=== PATIENT | male | born 1975 | race Caucasian/White ===

== ENCOUNTER 2021-01-21 17:00 | Outpatient (RCR) | payer MEDICARE, SELFPAY | END 2021-04-05 23:59 | LOC: IMMUN 17:00 | PROVIDERS: Referring Provider Family Medicine; Visit Provider Family Medicine | DX: Z23 Encounter for immunization (principal) | CPT/HCPCS: 0001A; 0002A; 91300 ==

== ENCOUNTER 2022-04-30 12:18 | Emergency (ER) | payer MEDICAID, SELFPAY ==
[2022-04-30 12:19] VITALS: BP 139/86; PULSE 72; RESP 15; TEMP 35.8; O2SAT 96; BMI 26.6
--- NOTE | 2022-04-30 12:28 | EDS_ITS ---
HPI History of Present Illness Chief Complaint: Lower Extremity Injury Detail of Chief Complaint: Left foot injury Informant: patient Narrative Narrative: Patient presents the emergency department complaint of injury to his left foot, initially occurred a week ago when his large 100 pound dog ran into his foot and stubbed it. He initially did not think much of it but then he reinjured it last night. Patient having a hard time bearing weight. Patient seen at urgent care and referred to the ER as they do not have x-ray on Sunday. PFSH PFSH Medical History no medical history Home Medications Prilosec OTC 04/30/22 [History Last Taken Unknown] hydrocodone-acetaminophen 5-325mg 5mg-325mg 1 tab PO Q4H PRN PRN Pain 2 days #10 TABLETS 04/30/22 [Rx Last Taken Unknown] multivitamin 04/30/22 [History Last Taken Unknown] Allergy/AdvReac Type Severity Reaction Status Date / Time No Known Allergies Allergy Verified 04/30/22 12:19 Surgical History no surgical history Social History Smoking Status: Never smoker ROS ROS ED Review of Systems ROS Unobtainable: other Constitutional Constitutional ED: Reports lethargy; Denies chills, fever(s), sweats or weight loss Eyes Eyes: Denies blurry vision, change in vision or diplopia ENT ENT ED: Denies rhinorrhea or sore throat Cardiovascular Cardiovascular: Reports chest pain and racing heartbeat; Denies orthopnea Respiratory/Chest Respiratory/Chest: Reports dyspnea and dyspnea on exertion; Denies cough, orthopnea or sputum Gastrointestinal Gastrointestinal: Denies abdominal pain, diarrhea, nausea or vomiting Genitourinary Genitourinary ED: Denies dysuria, hematuria or urinary frequency Musculoskeletal Musculoskeletal: Reports other Details: Left foot injury/pain ; Denies arthralgias, back pain, myalgias or neck pain Integumentary Denies abscess, Abrasions or rash Neurologic Neurologic: Denies headache(s) or weakness Psychiatric Psychiatric: Denies anxiety, depression or suicidal thoughts Endocrine Endocrinology: Denies polydipsia, polyphagia or polyuria Hematologic/Lymphatic Hematologic/Lymphatic: Denies easy bleeding, easy bruising or lymphadenopathy Allergic/Immunologic Allergic/Immunologic ED: Denies mouth swelling, tongue swelling or urticaria EXAM Physical Exam Const Vital Signs: 04/30/22 12:19 Temperature 96.4 F L Temperature Source Temporal Pulse Rate 72 Respiratory Rate 15 Blood Pressure 139/86 H Blood Pressure Mean 103 Pulse Ox 96 Oxygen Delivery Method Room Air Positive well nourished and well developed General Appearance ED: well developed and NAD HEENT Reports TM's clear and moist mucous membranes normocephalic and atraumatic; Negative for trauma or tenderness Tympanic Membrane ED: Yes TM's clear Eyes PERRL and EOMs intact bilaterally General Eye ED: Negative for pale conjunctiva or scleral icterus Neck no lymphadenopathy, supple and no JVD General: Negative for tenderness Chest Wall inspection of chest normal and palpation of chest normal Chest: Negative for tenderness Resp normal respiratory effort and clear to auscultation bilaterally Effort and Inspection: Negative for respiratory distress or pain with movement Auscultation: Negative for rhonchi, wheezes or diminished lung sounds Cardio regular rate, regular rhythm, S1 normal heart sound, S2 normal heart sound and no murmurs Peripheral Pulses: pulses 2+ throughout GI normal to inspection, nondistended, normoactive bowel sounds, soft to palpation, non-tender, non-distended and no masses Back/Spine no CVA tenderness and no thoracic nor lumbar tenderness Extremity Extremity Narrative: Left foot-patient has ecchymosis and bruising to the dorsal aspect of the distal foot adjacent to the second and third toes. Second and third toes have some ecchymosis and bruising over the proximal phalanx. No obvious deformity. Neurovascular intact distally. General Extremety ED: Negative for edema General Extremity: Negative for edema Neuro oriented x3, CN's II-XII intact bilaterally, no sensory deficits noted and gait normal Sensorium / Orientation: awake, alert, oriented to person, oriented to place and oriented to time Motor Exam: strength 5/5 throughout and strength abnormal Psych mental status grossly normal Skin no rashes or lesions noted and no wounds MDM MDM MDM Narrative Medical decision making narrative: Three-view x-rays of the left foot obtained interpreted by myself as fracture at the base of the proximal phalanx of the second toe. Official report from radiology pending. Patient does not want a postop shoe or David wrap. He does not want to have a toes gracy taped. Patient did not want crutches. Patient will be given a prescription for few [place] for pain. He is given referral to podiatry for follow-up. He is to ice and elevate the extremity. Discharge Plan Triage Chief Complaint: Lower Extremity Injury ED Provider: Andrey Her Dx/Rx/DC Orders Clinical Impression: Closed fracture of toe Instructions: ED Fracture, Toe, Closed Prescriptions: New hydrocodone-acetaminophen [hydrocodone-acetaminophen] 5-325 mg tablet 1 tab PO Q4H PRN PRN (Reason: Pain) 2 Days Qty: 10 0RF No Action Prilosec OTC multivitamin Primary Care Provider: Care Physician,No Primary Referrals: Jeremías Beard DPM [STAFF PHYSICIAN] - 3-5 Days Care Physician,No Primary [Primary Care Provider] - Disposition Disposition: Home, Self Care
--- NOTE | 2022-04-30 12:28 | RAD_ITS ---
EXAM: XR LEFT FOOT COMPLETE, 3 OR MORE VIEWS CLINICAL INDICATION: injruy TECHNIQUE: Frontal, lateral and oblique views of the left foot. This report was created using [employer] report generation technology. COMPARISON: None. FINDINGS: BONES/JOINTS: Fracture deformity of the proximal portion of the second proximal phalanx. Preservation of the joint space. No sclerotic or destructive changes observed. SOFT TISSUES: Mild soft tissue swelling of the dorsum of the foot. No radiopaque foreign body. RAD/Foot min 3 Views IMPRESSION: Nondisplaced fracture deformity of the second proximal phalanx Electronically Signed: Ra Holland MD at 12:53 EDT ,
== END 2022-04-30 12:52 | disposition home or self-care (01) ==
PROVIDERS: Emergency Provider Emergency Medicine; Visit Provider Emergency Medicine
DX: S92.502A Displaced unspecified fracture of left lesser toe(s), initial encounter for closed fracture (principal); X58.XXXA Exposure to other specified factors, initial encounter
CPT/HCPCS: 73630; 99282

== ENCOUNTER 2025-02-27 10:45 | Emergency (ER) | payer MEDICAID, SELFPAY ==
[2025-02-27 10:46] VITALS: BP 160/87; PULSE 74; RESP 16; TEMP 36.8; O2SAT 95; BMI 28.1
--- NOTE | 2025-02-27 11:08 | EX.ED.UPPERE ---
HPI <CHRIS Montemayor - Last Filed: 02/27/25 11:09> History of Present Illness Chief Complaint: Upper Extremity Injury Narrative Narrative: 49-year-old male cut his right hand over the thenar eminence 1 week ago on a piece of wood. He cleansed the wound and states it became slightly swollen so he took an old Z-Sina that he had on hand. The wound has closed and does not look worse but he still having pain in the area. He has chronic pain in his right shoulder and that seemed worse as well and he was concerned that maybe there is a wound infection. He has no fever or chills. He has no known medical problems. PFSH <CHRIS Montemayor Last Filed: 02/27/25 11:09> [facility] Home Medications ?Medication ?Instructions ?Recorded ?Last Taken ?Type Prilosec OTC 04/30/22 Unknown History hydrocodone-acetaminophen 5-325mg 1 tab PO Q4H PRN PRN Pain 2 days 04/30/22 Unknown Rx 5mg-325mg #10 TABLETS multivitamin 04/30/22 Unknown History Allergy/AdvReac Type Severity Reaction Status Date / Time No Known Allergies Allergy Verified 02/27/25 10:48 Social History Smoking Status: Never smoker ROS <CHRIS Montemayor Last Filed: 02/27/25 11:09> ROS ED ROS Narrative Constitutional: Negative for fever, chills, malaise. Neuro: Negative for motor/sensory dysfunction. Skin: Negative for rash, abscess. EXAM <CHRIS Montemayor Last Filed: 02/27/25 11:09> Physical Exam Narrative Exam Narrative: CONST: Patient sitting in no acute distress. EYES: Normal inspection. NECK: Normal inspection. RESP: No respiratory distress, CTAB. CVS: Regular rate and rhythm, no murmur, no gallop. SKIN: Color normal, no rash, warm, dry, intact. EXTREMITIES: Healed 1 cm scab right thenar eminence. No surrounding redness or swelling. No tenderness, fluctuance or crepitus. Upper extremities both appear normal with full range of motion and normal motor and sensory function in median radial and ulnar distributions. 2+ radial pulses. Brisk cap refill. NEURO: Alert and answering questions appropriately. PSYCH: Normal affect. Const Vital Signs: 02/27/25 10:46 Temperature 98.3 F Temperature Source Oral Pulse Rate 74 Respiratory Rate 16 Blood Pressure 160/87 H Blood Pressure Mean 111 Pulse Ox 95 Oxygen Delivery Method Room Air MDM <Dr. Pepe Harvey MD - Last Filed: 02/27/25 11:16> [facility] Narrative Medical decision making narrative: I have personally performed a face to face assessment of the patient and have reviewed the RADHA Note. I performed a substantive portion of the visit including all aspects of the following. My [place] findings include: History is [healthy 49-year-old male [id number] laceration on his right thumb thenar eminence about a week ago. He is just complaining some mild discomfort. Does not think there was a foreign body. No redness or fever. No prior surgery. He has chronic right shoulder pain. He said that some volume little bit lately. But he has normal range of motion.] Exam is [well-appearing 49-year-old male. Vital signs stable afebrile. Significant other sitting in a chair beside him. HEENT exam normal. Lungs clear to auscultation bilaterally. Heart regular rhythm. Abdomen soft. Right hand healing minor laceration thenar eminence. No obvious foreign body. No swelling. No redness. No pus no streaks. Strong radial pulse. Full flexion extension of his wrist full flexion extension all digits of his hand. Normal strength. Normal sensation. No axillary lymphadenopathy. Normal range of motion of his right shoulder. Ligaments intact in the thumb.] Medical Decison Making [clinically the thumb looks good it does not look infected. We discussed possible foreign body. I explained to him that small piece of wood probably would not show up. But I did offer an x-ray he deferred. Outpatient follow-up for his shoulder. He knows to return if his right hand starts looking infected with redness or swelling, etc.] Other additions or changes: [None] History & Record Review Discussion w/independent historian: Patient Discharge Plan Triage Chief Complaint: Upper Extremity Injury ED Midlevel Provider: Lula Patterson ED Provider: Pepe Harvey Dx/Rx/DC Orders Clinical Impression: Encounter for post-traumatic wound check Instructions: ED Wound Check (No Infection) Prescriptions: No Action Prilosec OTC multivitamin hydrocodone-acetaminophen [hydrocodone-acetaminophen] 5-325 mg tablet 1 tab PO Q4H PRN PRN (Reason: Pain) 2 Days Qty: 10 0RF Primary Care Provider: Care Physician,No Primary Referrals: Omkar Martinez DO [Med Staff - Active Staff] - Care Physician,No Primary [Primary Care Provider] - Activity Restrictions/Additional Instructions: There are no signs of wound infection now. Monitor and if you develop redness, swelling, drainage of pus, or fever please be reevaluated. For chronic right shoulder pain I recommend you follow-up with a primary care doctor or orthopedics. Print Language: Belgian Disposition Disposition: Home, Self Care
== END 2025-02-27 12:46 | disposition home or self-care (01) ==
LOC: ED 11:19
PROVIDERS: Emergency Provider Emergency Medicine; Visit Provider Emergency Medicine
DX: Z51.89 Encounter for other specified aftercare (principal); S66.921A Laceration of unspecified muscle, fascia and tendon at wrist and hand level, right hand, initial encounter; X58.XXXA Exposure to other specified factors, initial encounter
CPT/HCPCS: 99282

== ENCOUNTER 2025-07-20 10:16 | Day surgery (SDC) | payer MEDICAID, SELFPAY ==
--- NOTE | 2025-06-30 09:04 | EKG12_ITS ---
Test Reason : PREOP
[2025-06-30 10:06] LABS: Hematocrit 43.1 % (40-54); Hemoglobin 14.9 g/dL (13.0-16.5); Immature Granulocytes Count 0.010 X10^3/uL (0.0-0.0); Mean Corp Hgb Conc 34.6 g/dL (32-36); Mean Corpuscular Volume 94.9 fL (80-94); Mean Platelet Vol. 9.1 fl (6.2-12.0); NRBC Flagged by Analyzer 0 % (0-5); Platelet Count 324 K/mm3 (150-450); RBC Distribution Width CV 12.7 % (11.6-14.6); RBC Distribution Width SD 44.4 fl (35.1-43.9); Red Blood Count 4.54 M/mm3 (4.6-6.2); White Blood Count 4.9 K/mm3 (4.4-11.0)
[2025-06-30 11:27] LABS: Anion Gap 11 (5-15); BUN 16 mg/dL (4-19); BUN/Creat Ratio 17.8 RATIO (10-20); Calcium,Total 9.4 mg/dL (7.6-11.0); Carbon Dioxide 24.5 mmol/L (21.0-32.0); Chloride 103 mmol/L (98-108); Glucose 98 mg/dL (70-99); Potassium 4.8 mmol/L (3.3-5.1)
--- NOTE | 2025-06-30 13:17 | PAT.ANESEVAL ---
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 When Was Last Pacemaker Check QUESTION #4 FULL TEXT: You/Your Family Experience fever (hyperthermia) with Anesthesia Last Oral Intake Last Oral intake: Last Oral Intake NPO since Meds taken in AM with sips of water? Meds patient instructed to take am of surgery PONV PONV - medical billing manager: PONV - medical billing manager Female No 06/23/25 10:33 HX of Motion Sickness No 06/23/25 10:33 HX of N/V After Surgery No 06/23/25 10:33 Non-Smoker Yes 06/23/25 10:33 Duration of Surgery greater Yes 06/23/25 10:33 than 60 minutes Number of Risk Factors 2 06/23/25 10:33 PONV Score Moderate Risk 06/23/25 10:33 Height & Weight Height & Weight: Anesthesia: Height & Weight Height 5 ft 9 in 02/27/25 10:46 Respiratory Assessment Respiratory Assessment - medical billing manager: Respiratory Tract Infection Hx - medical billing manager Hx Respiratory Tract Infection No 06/23/25 10:33 STOP Sleep Apnea STOP Sleep Apnea - medical billing manager: STOP Sleep Apnea - medical billing manager Hx Hypertension No 06/23/25 10:33 Hx Sleep Apnea No 06/23/25 10:33 CPAP BIPAP Do you snore loudly (louder No 06/23/25 10:33 than talking or can be heard Do you often feel tired/ No 06/23/25 10:33 fatigued/ sleepy during daytime? Has anyone observed you stop No 06/23/25 10:33 breathing during sleep? STOP Results Negative 06/23/25 10:33 QUESTION #5 FULL TEXT : Do you snore loudly (louder than talking or can be heard through closed doors)? 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 Specify any problems Hx of Preganancy in last 3 N/A 06/23/25 10:33 Months Nurse Filling Out Transfusion VCHRISTIN 06/23/25 10:33 & Questions: Date: 06/23/25 06/23/25 10:33 Time: 10:34 06/23/25 10:33 Patient unable to answer at this time (ie. confused, unrespo /Reproduction History /Reproductive History - medical billing manager: /Reproductive Hx- medical billing manager Hx Now Gestational Age (in weeks): EDC: Hx Hx Para Hx [facility] Medical History (Updated 06/23/25 @ 10:33 by Sigrid Stoddard) Injury of head and neck Gastric reflux Non-smoker History of irregular heartbeat History of torsion of testis Home Medications ?Medication ?Instructions ?Recorded ?Last Taken ?Type acetaminophen 325 mg tablet (Pain 650 mg PO Q6H 06/23/25 Unknown History Relief (acetaminophen)) multivitamin (Daily Multi-Vitamin 1 tab PO DAILY 06/23/25 Unknown History tablet) omeprazole 20 mg tablet,delayed 20 mg PO DAILY 06/23/25 Unknown History release Allergy/AdvReac Type Severity Reaction Status Date / Time No Known Allergies Allergy Verified 06/23/25 10:25 Social History Smoking Status: Never smoker Audit: Pertinent Findings Pertinent Findings EKG Perinent findings: June 30, 2025.. Sinus rhythm with marked sinus arrhythmia. ST elevation consider early repolarization. Recommendation Anesthesia Recommendation Anesthesia recommendation: OPTIMIZED for anesthesia
[2025-07-20] VITALS (9 sets, daily range): BP systolic 111–128; BP diastolic 78–89; PULSE 66–83; RESP 16–66; TEMP 36.1–36.6; O2SAT 95–100
--- NOTE | 2025-07-20 10:29 | PCM.PRE.AN2 ---
ASA Classification* ASA Classification ASA Classification: 2 Assessment & Plan Anesthesia* Anesthesia Assessment Anesthesia Assessment: Discussed sedation and/or anesthesia options, risks, benefits, and alternatives with patient/parents/legal guardian/POA. Questions invited. The patient/parents/legal guardian/POA seems to understand and agrees to proceed with anesthesia plan. Reviewed the physical assessment, medical history, allergy history and patient home medications list prior to surgery/procedure/anesthetic and documented any changes. Performed airway and anesthesia risk assessments. Anesthesia Type Anesthesia Type: General and Block Anesthesia Focused Assessment* Airway Assessment Mouth opens: >3 cm Mallampati Score: II Labs Anesthesia Preop lab: CBC WBC, (4.4-11.0) 4.9 K/mm3 06/30/25, : RBC, (4.6-6.2) 4.54 M/mm3 L 06/30/25, : Hgb, (13.0-16.5) 14.9 g/dL 06/30/25, : Hct, (40-54) 43.1 % 06/30/25, : Plt Count, (150-450) 324 K/mm3 06/30/25, 09:24 CHEMISTRY Potassium, (3.3-5.1) 4.8 mmol/L 06/30/25, :24 Sodium, (133-145) 139 mmol/L 06/30/25, 09:24 BUN, (4-19) 16 mg/dL 06/30/25, : Creatinine, (0.70-1.20) 0.90 mg/dL 06/30/25, : Glucose, (70-99) 98 mg/dL 06/30/25, 09:24 COAG Pre-Assessment Diagnosis/Proposed Procedure Planned Operative Procedure(s): (R) RIGHT SHOULDER ARTHROSCOPIC ROTATOR CUFF REPAIR AND MINI OPEN BICEPS TENODESIS Anesthesia History 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 When Was Last Pacemaker Check QUESTION #4 FULL TEXT: You/Your Family Experience fever (hyperthermia) with Anesthesia Last Oral Intake Last Oral intake: Last Oral Intake NPO since Meds taken in AM with sips of water? Meds patient instructed to take am of surgery PONV PONV - carding supervisor: PONV - carding supervisor Female No 06/23/25 10:33 HX of Motion Sickness No 06/23/25 10:33 HX of N/V After Surgery No 06/23/25 10:33 Non-Smoker Yes 06/23/25 10:33 Duration of Surgery greater Yes 06/23/25 10:33 than 60 minutes Number of Risk Factors 2 06/23/25 10:33 PONV Score Moderate Risk 06/23/25 10:33 Height & Weight Height & Weight: Anesthesia: Height & Weight Height 5 ft 9 in 02/27/25 10:46 Respiratory Assessment Respiratory Assessment - carding supervisor: Respiratory Tract Infection Hx - carding supervisor Hx Respiratory Tract Infection No 06/23/25 10:33 STOP Sleep Apnea STOP Sleep Apnea - carding supervisor: STOP Sleep Apnea - carding supervisor Hx Hypertension No 06/23/25 10:33 Hx Sleep Apnea No 06/23/25 10:33 CPAP BIPAP Do you snore loudly (louder No 06/23/25 10:33 than talking or can be heard Do you often feel tired/ No 06/23/25 10:33 fatigued/ sleepy during daytime? Has anyone observed you stop No 06/23/25 10:33 breathing during sleep? STOP Results Negative 06/23/25 10:33 QUESTION #5 FULL TEXT : Do you snore loudly (louder than talking or can be heard through closed doors)? 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 Specify any problems Hx of Preganancy in last 3 N/A 06/23/25 10:33 Months Nurse Filling Out Transfusion VCHRISTIN 06/23/25 10:33 & Questions: Date: 06/23/25 06/23/25 10:33 Time: 10:34 06/23/25 10:33 Patient unable to answer at this time (ie. confused, unrespo /Reproduction History /Reproductive History - carding supervisor: /Reproductive Hx- carding supervisor Hx Now Gestational Age (in weeks): EDC: Hx Hx Para Hx Section SAB Active Medications Active Medications: Current Medications Generic Name Dose Route Start Last Admin Trade Name Freq PRN Reason Stop Dose Admin Cefazolin Sodium 2 gm/ Sodium 110 mls @ 200 mls/hr 07/20/25 12:30 Chloride IV 07/20/25 13:02 INTRAOP ONE Lactated Ringer's 1,000 mls @ 15 mls/hr 07/20/25 10:30 IV .Q48H [facility] PFSH Medical History Injury of head and neck Gastric reflux Non-smoker History of irregular heartbeat History of torsion of testis Home Medications ?Medication ?Instructions ?Recorded ?Last Taken ?Type acetaminophen 325 mg tablet (Pain 650 mg PO Q6H 06/23/25 Unknown History Relief (acetaminophen)) multivitamin (Daily Multi-Vitamin 1 tab PO DAILY 06/23/25 Unknown History tablet) omeprazole 20 mg tablet,delayed 20 mg PO DAILY 06/23/25 Unknown History release Allergy/AdvReac Type Severity Reaction Status Date / Time No Known Allergies Allergy Verified 06/23/25 10:25 Social History Smoking Status: Never smoker Review of Systems (Anesthesia) ROS Narrative System reviewed and no additional complaints, except as documented.
[2025-07-20] MEDS: Bupiv/Epi 0.25% 30 ML Vial (10:37)
[2025-07-20] MEDS: Lactated Ringers 1,000 ML 15 ML IV (10:46)
[2025-07-20] MEDS: Midazolam 2 MG/2 ML Syringe IV (10:54)
[2025-07-20] MEDS: fentaNYL 100 MCG/2 ML Ampul IV (11:15)
[2025-07-20] MEDS: Lidocaine 1% (5 ml sdv) 5 ML Vial 10 ML IV (11:15)
[2025-07-20] MEDS: Cefazolin 1 GM/5 ML Vial 2 GM IV (11:15)
[2025-07-20] MEDS: Epinephrine (1 mg/ml) 1 MG/ML VIAL (12:09)
--- NOTE | 2025-07-20 13:25 | OP.PCM_ITS ---
Operative Report (Standard)
--- NOTE | 2025-07-20 13:25 | PCM.OPRPT ---
Operative Report (Standard) Operative Information Date of Procedure: 07/20/25 Pre-Operative Diagnosis: 1. Right shoulder rotator cuff tear 2. Right shoulder long head biceps tendon tendinopathy and partial tearing Post-Operative Diagnosis: 1. Right shoulder rotator cuff tear 2. Right shoulder long head biceps tendon tendinopathy and partial tearing Surgery/Procedure Performed: 1. Right shoulder arthroscopic rotator cuff repair 2. Right shoulder mini open subpectoral biceps tenodesis flight engineer performance qualified: Yes Toddler Lead Teacher: Latonya Troy Tasks completed by insurance sales assistant: Opening & closing, Implanting device, Hemostasis: Electrocautery and Retracting Type of Anesthesia: General/Regional RN Documented Start/Stop Times: Operation Date: 07/20/25 12:30 Case Time Into Pre-Op 07/20/25 10:20 Anesthesia Start 07/20/25 11:12 Into Room 07/20/25 11:12 Out of Pre-Op 07/20/25 11:12 Procedure Start 07/20/25 11:36 Procedure Start Time: 11:36 Procedure Stop Time: 13:21 Select all DRAINS/GRAFTS/IMPLANTS that apply: Implanted device Implanted device details: Arthrex triple loaded fiber tack anchor x 2, bio composite self punching swivel lock anchor x 1, metallic biceps button Estimated Blood Loss: 10 cc Specimen collected: No Description of surgery: Patient was identified in preoperative holding area by name, medical record number, and date of . The operative extremity was marked. All questions were answered to the patient's satisfaction. An interscalene block was administered by anesthesia prior to the procedure. Patient was then brought to the operative suite at time of his procedure. He was positioned supine a sterile operating table. General anesthesia was induced and LMA was placed. Patient was then placed in lateral decubitus position with the right side up. A beanbag was used to hold the patient in the lateral decubitus position. An axillary roll was placed. Pillows were placed beneath and between his legs to for any bony prominences. We prepped and draped the right upper extremity in normal, sterile orthopedic fashion. The operative extremity was placed in traction utilizing arthroscopic bedroom with 15 pounds of tension applied to the operative extremity throughout the arthroscopic portion of the case. We performed a timeout with all parties in attendance in agreement with the side, site, and operation be performed. No concerns were voiced and we elected to proceed with surgery. 2 g Ancef was administered IV prior to incision by anesthesia staff. I first established a standard posterior portal 2 fingerbreadths inferior medial to the posterior lateral border of the scapular spine. Blunt tipped trocar and arthroscopic cannula was introduced into the glenohumeral joint. Joint was inflated with normal saline with epinephrine. Arthroscope was then introduced. Diagnostic arthroscopy was commenced. Partial tearing along the biceps tendon was noted in the intra-articular portion. Sublabral foramen was noted. Biceps tenotomy was then performed with arthroscopic cautery after establishment of standard anterior interval portal. Full-thickness tearing of the subscapularis was noted. Significant adhesions were noted and a 3 sided release was performed with combination of elevators and cautery. Tendon was mobilized well. Anterior superior lateral portal was established. Double row fixation was then utilized. Footprint was lightly decorticated with a rasp. Triple loaded fiber tack anchor was then placed along the chondral margin of the lesser tuberosity. A traction suture was placed along the central portion of the subscapularis. Sutures were passed sequentially through the subscapularis tissue with 2 of the 3 suture pairs utilized, the third was discarded. Sutures were passed sequentially with a scorpion suture passer. Corresponding sutures were then tensioned and tied. The traction suture and the 4 suture limbs were then passed through the eyelet of a swivel lock anchor which was placed along the lateral margin of the lesser tuberosity to better reduce the tear margin. There is excellent reapproximation of [place] subscapularis anatomy and footprint compression. Sutures were cut. No dogears identified. The articular side of the supraspinatus appeared pristine. Glenohumeral cartilage was pristine. I withdrew the arthroscope and reentered the shoulder in the subacromial space. Extensive bursitis was noted. No significant subacromial impingement was apparent. The bursal side of the rotator cuff also appeared pristine. I used a spinal needle to inject the area of concern for delaminated tear. A 1 x 1 cm area demonstrated a positive bubble test. I then proceeded with debridement of the tear by first performing a longitudinal tenotomy in line with the fibers in the central portion of the tear of the supraspinatus. Tear was then entered and debrided with a shaver. A triple loaded fiber tack anchor was placed at the footprint. 2 of the 3 suture pairs was utilized and the third was discarded. 2 [id number]-lv-[id number] sutures were then passed through the superior margin of the tear to reduce the interstitial tear and also repair my longitudinal tenotomy. Suture was tensioned and tied and then cut. Anatomic reduction was achieved. The subacromial space was then thoroughly lavaged. Arthroscopic instruments were removed. Arm was taken out of traction. 2 cm oblique incision was made along the inferior border the pectoralis major for tenodesis. Blunt dissection was carried down to level of fascia. Fascia was opened inferior to the pectoralis major. The pectoralis major was retracted laterally and the short of the biceps medially to identify and retrieved along the biceps tendon. Partial tearing and extensive tenosynovitis was noted in the long head of biceps tendon. Whipstitch was performed with a fiber loop suture at the musculotendinous junction. The intercalary segment of the biceps tendon was excised. Sutures were then passed alternatingly through a biceps button. I drilled across 1 cortex in the subpectoral region of the humerus for an onlay tenodesis. Button was placed and flipped in the intramedullary canal. Sutures were tensioned and tied. Scorpion suture passer was used to pass a suture limb back through the tendon and retied for additional fixation. There is excellent compression of the tendon to its tenodesis site. Wound was irrigated with saline solution. Dermis was reapproximated buried 3-0 Vicryl suture. Skin finally approximated with subcuticular 4-0 Monocryl and Dermabond. Field block was administered with 10 cc quarter percent bupivacaine with epinephrine. Portal sites were closed in standard fashion with a [id number] 3-0 nylon suture. Bulky sterile compression dressing was applied. Patient was placed in UltraSling. He tolerated the procedure well without apparent complication. He was safely awoken the operative suite and extubated. He was transferred to his gurney and subsequently to PACU in stable condition. Need for skilled assistant cross country coach: Latonay Troy PA-C was critical to the outcome of the case. During the course of the procedure the physician assistant cross country coach played a vital role. Her intimate knowledge of my steps in the procedure aided in safe and expedient completion of the procedure. The PA played a vital role in positioning particularly in obtaining the appropriate positioning. The PA was also vital in the retraction of soft tissues during the exposure and protecting vital structures. The PA was also vital and obtaining tendon reduction and assisting with hardware placement. She also played a vital role in closure and sling application with my direct supervision. Post Operative Plan: Weightbearing: Nonweightbearing right upper extremity, okay for pendulums. Range of motion of wrist elbow and hand as tolerated. Antibiotics: 2 g Ancef IV prior to incision DVT Prophylaxis: Aspirin enteric-coated 81 mg twice daily starting tomorrow Snow: None Dressing: Maintain dressing x 2 days then ok to shower X-Rays: 2 weeks postop in the office Pain Medication: Oxycodone Rx upon discharge Follow-up: 2 weeks post-operatively with me in the office Surgical Findings: Complete tear of the upper third to two thirds subscapularis with excellent reduction. Interstitial delamination tear of the supraspinatus 1 x 1 cm. Complications Complications: No Admit VTE Documentation VTE Present on Admission: No VTE Mechan Device Prophylaxis: SCD's VTE Pharm Prophylaxis ordered?: No Reason prophylaxis not ordered: Treatment Not Indicated
--- NOTE | 2025-07-20 13:38 | POSTOP.ANE_ITS ---
Anesthesia: Postop Eval I
--- NOTE | 2025-07-20 13:38 | PCM.POST.ANE ---
Anesthesia: Postop Eval I Current Vital Signs Temperature: 97 F Pulse Rate: 77 Blood Pressure: 118/79 Respiratory Rate: 16 Pulse Ox: 95 Assessment Airway patent: Yes Spontaneous unlabored respirations: Yes nausea: No Vomiting: No Anesthesia Complication: No Fluid Hydration Crystalloid volume administer (ml): 1,400 Total IV fluid infused: 1,400 Progress Note Anesthesia document: Postop Eval 1 completed: Yes
--- NOTE | 2025-07-20 14:22 | POSTOPAN2_ITS ---
Anesthesia Postop Eval I Sum
--- NOTE | 2025-07-20 14:22 | PCM.POSTANE2 ---
Anesthesia Postop Eval I Sum Postop Eval Completion status Anesthesia document: Postop Eval 1 completed: Yes Anesthesia Postop Eval I Summary Anesthesia Postop Eval I Summary: Anesthesia Postop Eval I: Assessment Summary Airway patent Yes 07/20/25 13:38 [email or web address] Spontaneous unlabored Yes 07/20/25 13:38 [email or web address] respirations Mental status nausea No 07/20/25 13:38 [email or web address] Vomiting No 07/20/25 13:38 [email or web address] Anesthesia Postop Eval I: Fluid Summary Crystalloid volume administer 1,400 07/20/25 13:38 [email or web address] (ml) Colloids volume administered ( ml) Blood Product volume administered (ml) Total IV fluid infused 1,400 07/20/25 13:38 [email or web address] Anesthesia Postop Eval I: Summary Notes Anesthesia Complication No 07/20/25 13:38 [email or web address] Anesthesia Complication Comment: Post-operative progress note Anesthesia: Postop Eval II Evaluation Mental status: Awake and Calm Pain Level: 1 nausea: No Vomiting: No
--- NOTE | 2025-08-31 07:18 | PCM.HP.STD ---
HPI - General General Date of Admission: 07/20/25 Date of Service: 07/20/25 Chief Complaint: Right shoulder pain HPI Narrative This is a late entry note. Apparently prior dictated H&P faxed from my office was not scanned into the electronic medical record. H&P was updated the day of surgery but was apparently lost. Below will serve as the preoperative H&P. This is a 50-year-old male who had presented to my office earlier this year with longstanding chronic right shoulder pain. He reports pain with activity especially weight lifting. Reports mechanical symptoms in his right shoulder. An MRI confirmed a rotator cuff tear of the subscapularis as well as interstitial delamination tear of the supraspinatus. Biceps instability, tendinopathy and partial tearing was also noted. Surgical intervention in the form of a right shoulder arthroscopic rotator cuff repair and biceps tenodesis was offered. He reports continued pain. No changes to his medical history reported. [facility] Medical History (Updated 08/31/25 @ 07:[address] Omkar Martinez DO) Tendinopathy of right biceps tendon Rotator cuff tear, right Injury of head and neck Gastric reflux Non-smoker History of irregular heartbeat History of torsion of testis Home Medications ?Medication ?Instructions ?Recorded ?Last Taken ?Type acetaminophen 325 mg tablet (Pain 650 mg PO Q6H 06/23/25 Unknown History Relief (acetaminophen)) multivitamin (Daily Multi-Vitamin 1 tab PO DAILY 06/23/25 Unknown History tablet) omeprazole 20 mg tablet,delayed 20 mg PO DAILY 06/23/25 07/20/25 History release Allergy/AdvReac Type Severity Reaction Status Date / Time No Known Allergies Allergy Verified 07/20/25 10:36 Social History Smoking Status: Never smoker ROS ROS Narrative 12 point review of systems obtained, negative unless otherwise noted in HPI. Physical Exam Narrative General -A&Ox3, NAD, appears stated age. Vital signs stable, afebrile. Respiratory -normal work of breathing, no intercostal retractions. CV -pulses regular, brisk capillary refill ?4 limbs. Abdomen-soft, nontender, nondistended. No guarding, rigidity, rebound tenderness. Right upper extremity: Bicipital groove tenderness right. No rashes or lesions. Positive belly press, bearhug and empty can as well as speeds test. Active forward flexion 150 degrees, external rotation 20 degrees. 5/5 strength with shoulder internal and external rotation, shoulder abduction. Sensation intact throughout. Radial pulse 2+ brisk capillary fill in the fingertips. Results Lab / Micro Data 06/30/25 09:24 06/30/25 09:24 Assessment & Plan Assessment/Plan (1) Rotator cuff tear, right: PLAN: Patient seen and examined. No change to each history and physical. As stated above, late entry note due to loss fax H&P that was updated prior on the day of surgery. Plan to proceed with surgical intervention. Informed consent was confirmed with the patient. Plan for right shoulder arthroscopic rotator cuff repair and biceps tenodesis. (2) Tendinopathy of right biceps tendon:
== END 2025-07-20 15:23 | disposition home or self-care (01) ==
LOC: SDC 10:17 → AC 10:19
PROVIDERS: Referring Provider Student in an Organized Health Care Education/Training Program; Visit Provider Student in an Organized Health Care Education/Training Program
PROC: (CPT 29827; principal; 2025-07-20 12:10)
DX: M75.101 Unspecified rotator cuff tear or rupture of right shoulder, not specified as traumatic (principal); S46.111A Strain of muscle, fascia and tendon of long head of biceps, right arm, initial encounter; G89.29 Other chronic pain; K21.9 Gastro-esophageal reflux disease without esophagitis; X58.XXXA Exposure to other specified factors, initial encounter
CPT/HCPCS: 29827; 23430; 64415; 01630; 36415; 80048; 85025; 93005; C1713; J2405